=== PATIENT | female | born 1950 | race Caucasian/White ===

== ENCOUNTER 2019-07-17 12:50 | Inpatient (IN) | payer OTHER, MEDICAID ==
[~2019-07-17] VITALS: Ht 160 cm; Wt 74.8 kg
[2019-07-17 12:54] VITALS: BP 126/79
[2019-07-17] MEDS ORDERED: XARELTO20 MG PO (13:01)
[2019-07-17] MEDS ORDERED: SOTALOL 120 MG120 M1 PO (13:01)
[2019-07-17] MEDS ORDERED: BIDIL TABLET1 EACH PO (13:01)
[2019-07-17] MEDS ORDERED: NORVASC 2.5 MG2.5 M1 PO (13:01)
[2019-07-17] MEDS ORDERED: ONDANSETRON HCL4 M2 PO (13:02)
[2019-07-17] MEDS ORDERED: GRALISE600 MG PO (13:02)
[2019-07-17] MEDS ORDERED: PRILOSEC OTC20 MG PO (13:02)
[2019-07-17] MEDS ORDERED: PROAIR HFA8.5 GM INH (13:02)
[2019-07-17] MEDS ORDERED: ADVAIR HFA 115-12 G1 INH (13:02)
[2019-07-17 13:32] LABS: INFLUENZA A ANTIGEN Negative (Negative)
[2019-07-17 13:36] LABS: ABSOLUTE EOSINOPHILS 0.1 thou/uL (0.0-0.7); ABSOLUTE LYMPHOCYTES 1.6 thou/uL (0.8-5.3); ABSOLUTE MONOCYTES 0.9 thou/uL (0.0-1.2); BASOPHILS 0.4 %; EOSINOPHILS 0.6 %; HEMATOCRIT 42.3 % (37.0-47.0); HEMOGLOBIN 14.3 gm/dL (12.0-15.0); LYMPHOCYTES 14.2 %; MCH 30.8 pg (26.0-34.0); MCHC 33.8 g/dL (28.0-37.0); MCV 91.3 fL (80.0-100.0); MONOCYTES 7.4 %; MPV 9.7 fl. (7.2-11.1); NUCLEATED RBCS 0 /100WBC; PLATELET COUNT* 249 thou/uL (150-400); POLYS 77.4 %; RBC 4.63 mil/uL (4.20-5.00); RDW-CV 12.8 % (10.5-14.5); WBC 11.6 thou/uL (4.0-11.0)
[2019-07-17 13:45] LABS: CALCIUM 9.2 mg/dL (8.5-10.1); CREATININE 1.1 mg/dL (0.6-1.3); POTASSIUM 4.2 mmol/L (3.5-5.1)
[2019-07-17 13:56] LABS: TOTAL BILIRUBIN 1.7 mg/dL (<0.1-1.0); TOTAL PROTEIN 8.4 g/dL (6.4-8.2)
[2019-07-17 15:59] VITALS: BP 138/61
--- NOTE | 2019-07-17 16:13 | EKG ---
[place] [address] ELECTROCARDIOGRAM REPORT Name: MARCELLA PACHECOJOHN Room: [address] ADM IN [facility].#: [id number] Admission: 07/17/19 Attend Phys: Deena Castillo MD Discharge: Date of : 46 Report #: [id number] THIS REPORT FOR: //name// [facility] ED Test Date: 2019-07-17 Test Time: 13:27:50 Pat Name: ANTONIO PACHECO Department: Room: [facility] Gender: F M46 M60 Armor Crewman: : [id number] Requested By: Fran Chan Order Number: [id number] MD: Juaquin Rivera Measurements Intervals Marion Rate: 66 P: -34 ND: 106 QRS: 55 QRSD: 121 T: 83 QT: 423 QTc: 444 Interpretive Statements Sinus rhythm Short ND interval Nonspecific intraventricular conduction delay artifact noted early transition No previous ECG available for comparison Electronically Signed On 07-17-2019 16:13:33 LOAN SERVICING SPECIALIST by Juaquin Rivera [email or web address] <ELECTRONICALLY SIGNED> By: Juaquin Rivera MD, [facility] 07/17/19 1613 [id number] 132 Juaquin Rivera MD, FACC /EPI
[2019-07-17 19:30] VITALS: BP 120/64
[2019-07-18] VITALS: BP 99/57
[2019-07-18 08:00] VITALS: BP 136/70
[2019-07-18 13:07] VITALS: BP 122/90
--- NOTE | 2019-07-18 13:49 | NUR ---
MET WITH PT TO DISCUSS HOME SITUATION/DC PLANNING. PT LIVES WITH SON [place] SHE IS INDEPENDENT WITH ADLS, WEARS O2 AT ALL TIMES. ALSO USES INHALER. HAD STAY IN SNF AT [place] ABOUT 3 MONTHS AGO, WAS TO HAVE HH BUT STATES 'THEY NEVER CALLED.' CHECKED WITH [facility], WAS [facility] THAT WAS ARRANGED. PT IS INTERESTED IN HH, DISCUSSED OPTIONS AND HAD NO PREFERENCE OTHER THAN SOMEONE 'DIFFERENT THAN [facility].' CALLED AND FA[facility]ED REFERRAL TO [facility], THEY ACCEPT PT'S INSURANCE, [place] NEED CALL AND [place]. PT PLANS TO RETURN HOME AT [place]. WILL FOLLOW [facility], [facility] [phone] FAX [phone]
[2019-07-18 13:51] VITALS: BP 122/90
[2019-07-18 19:50] VITALS: BP 135/72
[2019-07-19] VITALS: BP 103/55
[2019-07-19 04:36] LABS: HEMATOCRIT 34.7 % (37.0-47.0); MCH 30.4 pg (26.0-34.0); MCHC 33.3 g/dL (28.0-37.0); MCV 91.2 fL (80.0-100.0); MPV 9.7 fl. (7.2-11.1); NUCLEATED RBCS 0 /100WBC; PLATELET COUNT* 258 thou/uL (150-400); RBC 3.81 mil/uL (4.20-5.00); RDW-CV 13.1 % (10.5-14.5); WBC 16.9 thou/uL (4.0-11.0)
[2019-07-19 04:38] LABS: HEMOGLOBIN 11.6 gm/dL (12.0-15.0)
[2019-07-19 05:08] LABS: URINE BILIRUBIN NEGATIVE (Negative); URINE BLOOD NEGATIVE (Negative); URINE CLARITY CLEAR; URINE COLOR YELLOW; URINE GLUCOSE-RANDOM NEGATIVE (Negative); URINE KETONES NEGATIVE (Negative); URINE LEUKOCYTES NEGATIVE (Negative); URINE NITRITE NEGATIVE (Negative); URINE PROTEIN TRACE (Negative)
--- NOTE | 2019-07-19 05:57 | NUR ---
VSS. SEE MAR. SEE CHARTING. PROGRESSING TOWARDS GOALS. FALL PRECAUTIONS IN PLACE. HOURLY ROUNDING FOR SAFETY.
[2019-07-19 07:10] LABS: ABSOLUTE LYMPHOCYTES 1.7 thou/uL (0.8-5.3); ABSOLUTE MONOCYTES 0.3 thou/uL (0.0-1.2); ABSOLUTE NEUTROPHILS 14.9 thou/uL (1.6-8.1); PLATELET ESTIMATE ADEQUATE
[2019-07-19 07:53] VITALS: BP 118/56
[2019-07-19 16:00] VITALS: BP 132/66
--- NOTE | 2019-07-19 17:21 | NUR ---
PATIENT RESTING IN BED. UP AD WALDEMAR INROOM. M/S STATUS. VSS. PATINET IS STIL EXPERIENCING COUGH AND RIB PAIN ASSOCIATED WITH THE COUGH. HOULRY ROUNDING COMPLETED FOR PATINET SAFETY. FLU B POSITIVE.
[2019-07-19 20:10] VITALS: BP 110/55
[2019-07-20] VITALS: BP 133/77
--- NOTE | 2019-07-20 07:05 | NUR ---
VSS. SEE MAR. SEE CHARTING. FALL PRECAUTIONS IN PLACE. PROGRESSING TOWARDS GOALS. HOURLY ROUNDING FOR SAFETY.
[2019-07-20 07:44] VITALS: BP 125/64
[2019-07-20 16:00] VITALS: BP 98/40
--- NOTE | 2019-07-20 16:53 | NUR ---
PATINET RESTING IN BED. VSS. FLU B POSITIVE. DROPLET PRECAUTIONS. HOURLY ROUNDIG COMPELTED FOR PATIENTSAFETY.
[2019-07-20 20:20] VITALS: BP 142/65
[2019-07-21 00:49] VITALS: BP 138/73
--- NOTE | 2019-07-21 05:31 | NUR ---
PT CARE ASSUMED AT 1930. SAT MAINTAINED IN O2. C/O PAIN, MEDICATION GIVEN PER EMAR. ALERT AND ORIENTED X4. CALL LIGHT WITHIN REACH AND BED IN LOW POSITION. HOURLY ROUNDING DONE FOR PT SAFETY.
[2019-07-21 08:23] VITALS: BP 142/68
--- NOTE | 2019-07-21 10:00 | NUR ---
ASSUMED CARE OF PT THIS AM AROUND 714- MS STATUS IN PLACE ORDERED- UPON ASSESSMENT PT NOTED TO BE RESTING IN BED, WATCHING TV- PT A&O X4- CONTINENTN OF B/B- UP AD-WALDEMAR IN ROOM, STEADY GAIT NOTED- COURSE LUNG SOUNDS NOTED WITH WHEEZING- NON-PRODUCTIVE COUGH NOTED- DYSPNEA NOTED ON EXERTION- VSS, O2 SAT 95% ON 2L VIA NC- ABD SOFT/ROUND/NON-TENDER,BS X4 QUADS- LAST BM REPORTED 07/20/19- IV NOTED TO RIGHT AC INTACT, IV ABT INFUSSING PRESCIBED- ISOLATION IN PLACE INDICATED R/T FLU POSITIVE- PT DENIES ANY C/O PAIN/DISCOMFORT AT THIS TIME- PT MAKES NEEDS KNOWN- ALL NEEDS MET AT THIS TIME-WCTM
--- NOTE | 2019-07-21 13:50 | NUR ---
CONTINUE TO FOLLOW, MET WITH PT AND DISCUSSED WITH DR HANSEN. PT STATES SHE IS WEAK AND DOES HAVE TO BE ALONE DURING THE DAY WHILE HER NEPHEW WORKS. ALSO THAT FAMILY DEPEND ON HER TO BABYSIT. DID TALK WITH HER ABOUT WATCHING CHILDREN AND HAVING THE 'FLU.' PT IS INTERESTED IN HOME WITH HH VS SNF. PT/OT TO [facility], PT HAS ORDERS TO DC PENDING THOSE RESULTS. PT WOULD USE [facility] AND IF NEEDS SNF, WOULD WANT TO GO BACK TO [place]. CALLED AND FAXED INITIAL REFERRAL TO [facility]. AWAIT THERAPY EVCHRISTINE
[2019-07-21 15:50] VITALS: BP 118/71
[2019-07-21 20:10] VITALS: BP 150/72
[2019-07-22] VITALS: BP 151/80
--- NOTE | 2019-07-22 04:55 | NUR ---
PT CARE ASSUMED AT 1930. SAT MAINTAINED IN 02. ALERT AND ORIENTED X4. CALL LIGHT WITHIN REACH AND BED IN LOW POSITION. HOURLY ROUNDING DONE FOR PT SAFETY.
[2019-07-22 07:46] VITALS: BP 169/91
--- NOTE | 2019-07-22 09:10 | NUR ---
ASSUMED CARE OF PT THIS AM AROUND 714- MS STATUS IN PLACE AND MAINTAINED INDICATED- UPON ASSESSMENT PT NOTED TO BE RESTING IN BED- PT A&O X4- CONTINENT OF B/B- UP AD-WALDEMAR IN ROOM, STEADY GAIT NOTED- COURSE LUNG SOUNDS WITH NOTED WHEEZING; WET NON-PRODUCTIVE COUGH NOTED- DYSPNEA NOTED ON EXERTION- VSS, O2 SAT 99% ON 1L THIS AM- ABD SOFT/ROUND/NON-TENDER, BS X4 QUADS- LAST BM REPORTED 07/21/19- IV NOTED TO RIGHT AC INTACT, IV ABT GIVEN THIS AM PRESCIBED- GOOD PO INTAKE NOTED THIS AM WITH BREAKFAST, BS MONITORED ORDERED WITH SSI PRESCIBED-PT DENIES ANY C/O PAIN/DISCOMFORT AT THIS TIME- CALL LIGHT AND PERSONAL BELONGINGS WITH IN REACH- PT MAKES NEEDS KNOWN- ALL NEEDS MET AT THIS TIME-WCTM
--- NOTE | 2019-07-22 09:56 | NUR ---
CONTINUE TO WAIT ON INSURANCE AUTH FOR SNF PER [facility]
[2019-07-22] MEDS ORDERED: RAYOS5 MG PO (11:37)
[2019-07-22] MEDS ORDERED: LEVAQUIN 500 M500 M3 PO (11:39)
[2019-07-22] MEDS ORDERED: AUGMENTIN 875-1 EACH PO (11:40)
[2019-07-22] MEDS ORDERED: TYLENOL WITH CO1 TA1 PO (11:41)
[2019-07-22] MEDS ORDERED: TESSALON PERLE100 M1 PO (11:42)
[2019-07-22 11:50] VITALS: BP 116/72
[2019-07-22 11:53] LABS: ABSOLUTE EOSINOPHILS 0.1 thou/uL (0.0-0.7); ABSOLUTE LYMPHOCYTES 1.3 thou/uL (0.8-5.3); ABSOLUTE MONOCYTES 0.8 thou/uL (0.0-1.2); ABSOLUTE NEUTROPHILS 12.1 thou/uL (1.6-8.1); BASOPHILS 0.2 %; EOSINOPHILS 0.5 %; HEMATOCRIT 37.7 % (37.0-47.0); HEMOGLOBIN 12.5 gm/dL (12.0-15.0); MCH 30.2 pg (26.0-34.0); MCV 91.4 fL (80.0-100.0); MONOCYTES 5.7 %; MPV 8.6 fl. (7.2-11.1); NUCLEATED RBCS 0 /100WBC; PLATELET COUNT* 320 thou/uL (150-400); POLYS 84.6 %; RBC 4.12 mil/uL (4.20-5.00); RDW-CV 13.3 % (10.5-14.5); WBC 14.3 thou/uL (4.0-11.0)
[2019-07-22 12:09] LABS: ALBUMIN 2.2 g/dL (3.4-5.0); CALCIUM 8.8 mg/dL (8.5-10.1); CREATININE 1.2 mg/dL (0.6-1.3); POTASSIUM 4.2 mmol/L (3.5-5.1); TOTAL BILIRUBIN 0.4 mg/dL (<0.1-1.0); TOTAL PROTEIN 6.2 g/dL (6.4-8.2)
[2019-07-22] MEDS ORDERED: TESSALON PERLE100 MG PO (14:31)
[2019-07-22] MEDS ORDERED: PREDNISONE 10 M10 MG PO (14:31)
[2019-07-22 16:19] VITALS: BP 122/90
--- NOTE | 2019-07-22 16:19 | NUR ---
Insurance denied Pt's skilled stay. Pt to dc to home with [facility] , faxed orders and referral
[2019-07-22 18:22] VITALS: BP 162/84
[2019-07-22 20:30] VITALS: BP 140/91
[2019-07-23] VITALS: BP 152/104
[2019-07-23 03:43] LABS: HEMATOCRIT 35.8 % (37.0-47.0); HEMOGLOBIN 11.9 gm/dL (12.0-15.0); MCH 30.5 pg (26.0-34.0); MCHC 33.2 g/dL (28.0-37.0); MCV 91.7 fL (80.0-100.0); MPV 8.6 fl. (7.2-11.1); NUCLEATED RBCS 0 /100WBC; PLATELET COUNT* 268 thou/uL (150-400); RDW-CV 13.5 % (10.5-14.5); WBC 13.8 thou/uL (4.0-11.0)
[2019-07-23 03:58] LABS: ALBUMIN 2.1 g/dL (3.4-5.0); CALCIUM 7.9 mg/dL (8.5-10.1); CREATININE 1.2 mg/dL (0.6-1.3); POTASSIUM 4.7 mmol/L (3.5-5.1); TOTAL BILIRUBIN 0.3 mg/dL (<0.1-1.0); TOTAL PROTEIN 5.8 g/dL (6.4-8.2)
--- NOTE | 2019-07-23 04:35 | NUR ---
PT IN BED BUT AMBULATES AD WALDEMAR WITHOUT ANY DIFFICULTY. PT REMAINS ON 4L O2 PER NC. AM LABS REVIEWED. PT NOT ON TELE D/T MS STATUS. PLAN FOR POSSIBLE D/C TODAY.
[2019-07-23 08:00] VITALS: BP 163/83
[2019-07-23 08:24] LABS: ABSOLUTE LYMPHOCYTES 2.1 thou/uL (0.8-5.3); ABSOLUTE MONOCYTES 1.5 thou/uL (0.0-1.2); ABSOLUTE NEUTROPHILS 10.2 thou/uL (1.6-8.1); METAMYELOCYTES 3 %; MYELOCYTES 1 %; PLATELET ESTIMATE ADEQUATE
[2019-07-23 08:25] LABS: TOXIC GRANULATION 1+
[2019-07-23 12:34] VITALS: BP 115/91
[2019-07-23 14:42] VITALS: BP 122/90
--- NOTE | 2019-07-23 16:17 | NUR ---
ASSUMED PT CARE REPORT RECEIVED FROM NURSE. PT IS AOX4, ON 4 L NC. O2 SATURATION IS 100%. VSS. ANTIBIOTICS CHANGED TO PO. PT AWAITING FOR O2 TANK DELIVERY TO GO HOME. [facility] ( O2 OFFICE) CALLED. ANSWERING SERVICE MESSAGE SAYS THAT THEY ARE CLOSE ON THIS DAY IN OBSERVANCE OF THE FIRST OF THE YEAR. WILL CONTINUE TO MONITOR PT
--- NOTE | 2019-07-23 18:14 | NUR ---
HOUSE SUP WAS ABLE TO GET IN CONTACT WITH [facility]. [facility] REQUESTED THAT OXYGEN ORDER AND RT ASSESSMENT BE FAXED TO THEM. REQUEST WAS DONE.
[2019-07-23 19:40] VITALS: BP 124/58
[2019-07-24] VITALS: BP 119/58
[2019-07-24 05:06] LABS: ABSOLUTE LYMPHOCYTES 1.3 thou/uL (0.8-5.3); ABSOLUTE MONOCYTES 0.6 thou/uL (0.0-1.2); ABSOLUTE NEUTROPHILS 15.1 thou/uL (1.6-8.1); BASOPHILS 0.3 %; EOSINOPHILS 0.1 %; HEMATOCRIT 37.7 % (37.0-47.0); HEMOGLOBIN 12.5 gm/dL (12.0-15.0); LYMPHOCYTES 7.4 %; MCH 30.3 pg (26.0-34.0); MCHC 33.2 g/dL (28.0-37.0); MCV 91.2 fL (80.0-100.0); MONOCYTES 3.7 %; MPV 8.8 fl. (7.2-11.1); NUCLEATED RBCS 0 /100WBC; PLATELET COUNT* 299 thou/uL (150-400); POLYS 88.5 %; RBC 4.14 mil/uL (4.20-5.00); RDW-CV 13.5 % (10.5-14.5); WBC 17.1 thou/uL (4.0-11.0)
[2019-07-24 05:32] LABS: ALBUMIN 2.4 g/dL (3.4-5.0); CALCIUM 8.2 mg/dL (8.5-10.1); CREATININE 1.1 mg/dL (0.6-1.3); POTASSIUM 4.8 mmol/L (3.5-5.1); TOTAL BILIRUBIN 0.3 mg/dL (<0.1-1.0); TOTAL PROTEIN 6.3 g/dL (6.4-8.2)
--- NOTE | 2019-07-24 05:47 | NUR ---
VSS. ASSESSMENT COMPLETED CHARTED. SEE MAR. FALL PRECAUTIONS IN PLACE. HOURLY ROUNDING FOR SAFETY.
[2019-07-24 08:00] VITALS: BP 133/77
--- NOTE | 2019-07-24 09:56 | NUR ---
CALL TO [facility]. SHE STATED SHE DID SPEAK WITH NURSING ON AND SUN AND UPDATED WITH NEEDED DOCUMENTATION AND ORDERS. SHE HAD NOT RECEIVED THAT INFO OF THIS AM. FAXED HER UPDATED SATS, ORDERS AND ASKED THAT O2 TANK BE DELIVERED TODAY. UPDATED PT, SHE STATED THAT SHE DOES HAVE HOME O2 BUT THAT HER PORTABLE IS 'BROKEN.' TO DC TODAY. CALLED AND FAXED UPDATED DC ORDERS TO [facility]
[2019-07-24 12:35] VITALS: BP 130/89
[2019-07-24 13:32] VITALS: BP 122/90
--- NOTE | 2019-07-24 14:03 | NUR ---
discharge instructions reviewed with pt. piv was dc'd. discharge instructions, education materials and rxs sent with pt. all belongings sent with pt
== END 2019-07-24 14:25 | disposition home health service (06) | DRG 177 ==
LOC: M.ERS 12:50 → M.2W 14:35 → M.TBA-ER 14:35 → M.2W 16:10
PROVIDERS: Internal Medicine; Nurse Practitioner Psychiatric/Mental Health; ADMIT Internal Medicine
DX: J10.08 Influenza due to other identified influenza virus with other specified pneumonia (principal); J96.22 Acute and chronic respiratory failure with hypercapnia; J15.6 Pneumonia due to other Gram-negative bacteria; J96.21 Acute and chronic respiratory failure with hypoxia; R65.11 Systemic inflammatory response syndrome (SIRS) of non-infectious origin with acute organ dysfunction; J44.1 Chronic obstructive pulmonary disease with (acute) exacerbation; J44.0 Chronic obstructive pulmonary disease with (acute) lower respiratory infection; I48.91 Unspecified atrial fibrillation; R91.8 Other nonspecific abnormal finding of lung field; K44.9 Diaphragmatic hernia without obstruction or gangrene; K21.9 Gastro-esophageal reflux disease without esophagitis; J12.9 Viral pneumonia, unspecified; R59.0 Localized enlarged lymph nodes; I10 Essential (primary) hypertension; Z99.81 Dependence on supplemental oxygen; Z79.01 Long term (current) use of anticoagulants; Z88.2 Allergy status to sulfonamides; Z91.041 Radiographic dye allergy status; Z82.49 Family history of ischemic heart disease and other diseases of the circulatory system; Z23 Encounter for immunization